=== PATIENT | male | born 1980 | race Two or more races ===

== ENCOUNTER 2021-01-07 03:18 | Emergency (ER) | payer OTHER ==
[~2021-01-07] VITALS: Ht 170.2 cm; Wt 81.6 kg
[2021-01-07 03:28] VITALS: BP 119/78
[2021-01-07] MEDS ORDERED: LORAZEPAM INJ 2 MG/ML VIAL ONE (03:40)
[2021-01-07] MEDS ORDERED: LORAZEPAM INJ 2 MG/ML VIAL IM ONE (04:00)
--- NOTE | 2021-01-07 04:18 | NUR ---
Patient discharged to home in stable condition. Written and verbal after care instructions given. Patient verbalizes understanding of instruction.
== END 2021-01-07 04:19 ==
LOC: ER 03:22
DX: F41.0 Panic disorder [episodic paroxysmal anxiety] (principal)
CPT/HCPCS: 99283; J2060